=== PATIENT | female | born 1970 | race Caucasian/White ===

== ENCOUNTER → 2016-06-02 | Outpatient (CLI) | payer MEDICARE, OTHER, SELFPAY ==
--- NOTE | 2016-07-20 11:22 | BTN ---
SERVICE DATE: 07/20/2016 PATIENT #: [id number] #: NOT DICTATED IDENTIFICATION: Jessica is a 46-year-old female, who is here today for a followup visit. She brings with her, her 2-year-old grandson. CURRENT MEDICATIONS: Cymbalta 120 mg a day, Trileptal 600 mg b.i.d., hydroxyzine pamoate 25-50 mg at bedtime p.r.n. ALLERGIES: She has allergies to iodinated contrast media. CHIEF COMPLAINT: "Apparently, I am not doing too well." HISTORY OF PRESENT ILLNESS: Jessica states that she has had a lot of stressors lately. Money has been a big stressor, so she has had to cut back on her medications. She went several days without the Cymbalta and started doing much worse, so now she is down to taken 60 one day and 120 the next day. She is feeling some anxiety. She is also depressed. She is having more pain. She has gained weight, which is very distressing to her. Her ex- has not been paying the alimony on time and so, her bills are piling up. She was not able to make her bills that completely stressed her out. She states that with all of the stress on her, her pain has increased with her fibromyalgia. She is not sleeping well. She has not been using the hydroxyzine, either she has been really trying to conserve. Her medications, some day she feels hopeless. This has been to this extent for about the last 2 months. She denies suicidal or homicidal ideation. PHQ-9 score is eight. MIRZA-7 score is five. Past family, social history, and another major stressor is that her daughter is going to be going to school from September 06 to sometime in the first part of November, so that will leave the grand kids for Jessica to baby-sit and she has been stressing about that because it is a lot of work on her. REVIEW OF SYSTEMS: She has chronic pain. She has fibromyalgia. She also has some reactive airway disease with her respiratory. She has some gastric reflux as well. PHYSICAL EXAMINATION: VITAL SIGNS: Blood pressure is 134/96, heart rate 76, respirations 16, temperature is 97.8, her weight is 237.8 pounds. Height 68 inches. GENERAL APPEARANCE: She is well developed, well nourished, well groomed, appears her stated age. Muscle strength and tone appears equal bilaterally. Gait and station normal. Speech is clear, appropriate, coherent. I do not see any perseverating. Thought processes appear logical. Associations are intact. I do not see any psychosis. She denies hallucinations or suicidal or homicidal ideation. I do not see any delusions. Mood and affect are anxious and congruent. Insight and judgment appear fairly good. MENTAL STATUS EXAM: She is alert and oriented x3. Recent and remote memory appear intact. Attention span appears fairly normal. Language is good. Fund of knowledge appears adequate for developmental age. DIAGNOSES: Mark I: Bipolar I, F31.9; anxiety, F41.8. Mark II: No diagnosis. Mark III: She has fibromyalgia, reactive airway disease, acid reflux. Mark IV: Stressors, big stressor is money. Weight gain. When she has her grand children quite a bit, she gets completely stressed out and exhausted. Mark V: Current Global Assessment of Functioning score 67. TREATMENT PLAN: We talked about getting back on her medications as ordered and to see what she can do as far as I have being able to afford them on a consistent basis. She is going to talk to her daughter and see if the daughter can start paying her for baby-sitting as Jessica does not have really any other options. Boyfriend has helped her out somewhat, but she said she just cannot go to him. She said it causes too many problems, so she is going to try to get back on her medications on a regular basis. I also mentioned to her some phosphatidylserine 100 mg t.i.d. to see if that would help possibly with her stress resilience. She is going to give that a trial. I am going to see her back in a month. If she has any problems before that, she will give me a call. /[id number]
== END ==
LOC: MW.CHPM 09:16
PROVIDERS: ATTEND Anesthesiology
DX: Z51.81 Encounter for therapeutic drug level monitoring (principal); Z79.891 Long term (current) use of opiate analgesic
CPT/HCPCS: 95117; 99214; G0478; 80305

== ENCOUNTER → 2016-07-02 | Outpatient (CLI) | payer MEDICARE, OTHER, SELFPAY | LOC: MW.CHFP 08:00 | PROVIDERS: ATTEND Nurse Practitioner Family | DX: J30.1 Allergic rhinitis due to pollen (principal); J30.81 Allergic rhinitis due to animal (cat) (dog) hair and dander; J45.909 Unspecified asthma, uncomplicated | CPT/HCPCS: 95117 ==

== ENCOUNTER → 2016-07-20 | Outpatient (CLI) | payer MEDICARE, OTHER, SELFPAY | LOC: MW.CHFP 08:00 | PROVIDERS: ATTEND Nurse Practitioner Family | DX: J30.1 Allergic rhinitis due to pollen (principal); J30.81 Allergic rhinitis due to animal (cat) (dog) hair and dander; J30.89 Other allergic rhinitis; F31.9 Bipolar disorder, unspecified; F41.8 Other specified anxiety disorders | CPT/HCPCS: 95117; 99214 ==

== ENCOUNTER → 2016-08-12 | Outpatient (CLI) | payer MEDICARE, OTHER, SELFPAY ==
--- NOTE | 2016-08-12 13:32 | MR ---
EXAMINATION: MRI lumbar spine HISTORY: Arthropathy COMPARISON: 06/06/2015 TECHNIQUE: Multiplanar and multisequence images obtained of the lumbar spine without contrast. FINDINGS: There is grade 1 anterolisthesis of L4 on L5 otherwise the lumbar spinal alignment is norm al. There is a hemangioma within the L2 vertebral body. The distal spinal cord appears normal and th e conus terminates at L1. The SI joints are symmetric. The visualized retroperitoneal structures are normal. T12-L1: Unremarkable. L1-L2: Unremarkable. L2-L3: Tiny diffuse disc bulge without significant spinal canal stenosis or neural foraminal stenosi s. Mild facet and ligamentum flavum hypertrophy. L3-L4: Small diffuse disc bulge with facet and ligamentum flavum hypertrophy resulting in minimal sp inal canal stenosis. Mild bilateral neural foraminal stenosis. L4-L5: Moderate diffuse disc bulge with moderate to severe facet and ligamentum flavum hypertrophy r esulting in moderate spinal canal stenosis. Moderate to severe bilateral neural foraminal stenosis. L5-S1: Tiny diffuse disc bulge without significant spinal canal stenosis. Moderate left and mild rig ht neural foraminal stenosis. Moderate facet hypertrophy. IMPRESSION: 1. Multilevel degenerative disc disease demonstrated with individual details above.
== END ==
LOC: MW.MRI 08:49
PROVIDERS: ATTEND Anesthesiology
DX: M12.88 Other specific arthropathies, not elsewhere classified, other specified site (principal); M51.26 Other intervertebral disc displacement, lumbar region; M48.06 Spinal stenosis, lumbar region
CPT/HCPCS: 72148; 72148-26

== ENCOUNTER → 2016-08-13 | Outpatient (CLI) | payer MEDICARE, SELFPAY ==
--- NOTE | 2016-08-13 20:27 | CR ---
EXAM DATE: 08/13/16 PATIENT'S AGE: 46 Patient: CHARITO ZENDEJAS Facility: [place], [place] Site . Site : [id number] Study: XRay Spine Lumbar [id number] 10:26:33 AM Ordering Physician: Mireille Davidson Final Report: INDICATION: Lumbar stenosis TECHNIQUE: Five view lumbar spine including lateral flexion extension views. COMPARISON: none FINDINGS: There is facet degeneration at L4-5 and L5-S1. There is minimal anterior subluxation of L4 with respect L5. The degree of subluxation remains stable on the flexion extension views. There is narrowing of the L4-5 disc space. There is no evidence of a fracture or intrinsic bone lesion. The SI joints appear normal. The paraspinal soft tissues appear normal. IMPRESSION: Degenerative disc disease and facet arthropathy at L4-5 with accompanying mild anterior subluxation of L4 on L5. There is no evidence of instability on flexion or extension. Dictated by Dinesh Walsh MD @ Aug 13 2016 10:28AM (Electronic Signature) Report Signed by Proxy. DRAGAN
--- NOTE | 2016-08-19 13:39 | BTN ---
SERVICE DATE: 08/19/2016 PATIENT #: [id number] #: NOT DICTATED IDENTIFICATION: Jessica is a 46-year-old female, who is here today for a followup visit. CURRENT MEDICATIONS: Cymbalta 120 mg a day, Trileptal 600 mg b.i.d., hydroxyzine 25 mg to 50 mg at bedtime. She also recently started gabapentin 600 mg t.i.d. She also takes other medications for her chronic back pain; hydrocodone, diclofenac. CHIEF COMPLAINT: "I am not doing so well." HISTORY OF PRESENT ILLNESS: Jessica states that she has had more depression lately because she has had a lot more pain lately. She is hopefully going to be getting an epidural shot after she leaves our visit today. She states that if the pain is almost to where she cannot tolerate it. She said her pain is basically on a daily basis on a scale of 1 to 10 and 8. She is going to be meeting with surgeon from [facility] sometime this month and they are going to evaluate if they think surgery would help take care of a lot of the pain for her. She is hoping that will alleviate some of this. PHQ-9 score is 10, MIRZA-7 score is 2. Sleep is often disrupted because of the pain. She also has a lot of stressors with money. Ex- supposed to be sending her 800 a month and she said often times it is late or she does not get it all and that is a huge stressor for her with her bills. REVIEW OF SYSTEMS: Jessica has chronic back pain. She has had this for quite a while. In her lower back, there is a herniated disc or something to that effect. She also has reactive airway disease and takes medications for that. PHYSICAL EXAMINATION: VITAL SIGNS: Weight is 239.6 pounds, height 68 inches. Temp is 98.5, heart rate is 75, respirations 16, blood pressure 137/92. GENERAL APPEARANCE: Jessica is very well groomed, very pleasant lady. She appears her stated age. Her gait and station seem a little off and I think that is just because of the pain she has in her lower back. There is a slight lump. Her speech is clear and appropriate, coherent. Thought processes are logical. Associations appear intact. I do not see any delusions. She denies hallucinations or suicidal or homicidal ideation. Mood and affect, her mood is down and she said it is down for money reasons, but it is also down because of the chronic pain. Insight and judgment appear to be intact. MENTAL STATUS EXAM: She is alert and oriented x3. Recent and remote memory appear intact. Attention span appears within normal limits. Language is good. Fund of knowledge appears adequate for developmental age. DIAGNOSES: [place] I: Bipolar disorder, F31.9; anxiety, F41.8. [place] II: No diagnosis. [place] III: Chronic pain, reactive airway disease. [place] IV: Stressors, her chronic pain and money. [place] V: Current Global Assessment of Functioning score 68. TREATMENT PLAN: We discussed a number of options and I am going to add a little bit of Wellbutrin to the Cymbalta, I am going to give her 150 mg a day. She has taken Wellbutrin before and does not really remember how it affected her, but she know she took it for a long time. So, she states that she does not think that there was anything bad with that. I am going to add that. I will follow up with her in about 6 weeks. At that time, we should have some answers if they are going to do surgery, if the epidural has been successful. /[id number]
== END ==
LOC: MW.CHPM 08:05
PROVIDERS: ATTEND Anesthesiology
DX: Z51.81 Encounter for therapeutic drug level monitoring (principal); Z79.891 Long term (current) use of opiate analgesic; M48.06 Spinal stenosis, lumbar region; M51.36 Other intervertebral disc degeneration, lumbar region; M54.5 Low back pain; G89.29 Other chronic pain; M54.16 Radiculopathy, lumbar region; M43.16 Spondylolisthesis, lumbar region; M79.1 Myalgia
CPT/HCPCS: 20552; 72110; 72110-26; 80305; 99214

== ENCOUNTER 2016-08-19 12:04 | Day surgery (SDC) | payer MEDICARE, OTHER ==
[~2016-08-19 12:04] MED LIST: Betamethasone Acetate/Betamethasone Sod Phosphate 30 MG/5 ML MDV ONE; Lidocaine 2% 5 ML SDV ONE; Ropivacaine 0.5% 5 MG/ML 30 ML SDV ONE
--- NOTE | 2016-08-19 21:24 | OR ---
SURGEON: Lety Kendrick D.O. DATE OF PROCEDURE: 08/19/2016 OR STAFF PRESENT: 1. Kayden So RN. 2. Carey Kumar RN. FORGING ENGINEER: RT Elisa. WOUND CLASSIFICATION: I. PREOPERATIVE DIAGNOSES: 1. Lumbar degenerative disk disease. 2. Lumbar spondylosis. 3. Lumbar spondylolisthesis. POSTOPERATIVE DIAGNOSES: 1. Lumbar degenerative disk disease. 2. Lumbar spondylosis. 3. Lumbar spondylolisthesis. PROCEDURE PERFORMED: 1. Caudal epidural steroid injection. 2. Fluoroscopic guidance for needle placement. 3. Local with oral Valium for sedation. SCREENING QUESTIONS: The patient answered "no" to all of the following questions: 1. Are you allergic to latex? 2. Do you have a bleeding disorder? 3. Do you have any current local or systemic infections? 4. Are you taking any anti-inflammatories or blood thinners? 5. Do you have any joint replacements, heart valve replacements, or a pacemaker? DESCRIPTION OF PROCEDURE: The patient had the procedure thoroughly explained including all possible risks, benefits and alternatives. Consent was signed in my clinic indicating understanding and willingness to proceed. The patient presented to [facility] and was escorted to the dressing room to disrobe and change into a hospital gown. Preoperative vital signs were taken and stable. The patient reported that Valium was taken prior to the procedure. The patient was brought back to the procedure room and placed in the prone position on the procedure room table. A pillow was placed under the hips in order to flatten the lumbar lordosis. The back was prepped with ChloraPrep and sterilely draped. All personnel in the operating room were dressed in appropriate attire including surgical scrubs, head and shoe covers. This was to ensure sterility while in the treatment room. During the time fluoroscopy was in use, all personnel in the operating room wore lead leal with thyroid collars. Sterile technique was used throughout the procedure. The patient was awake and conversant throughout the procedure. There was no evidence of infection at the site of needle insertion. Skeletal landmarks were identified under fluoroscopy for the lumbar epidural. Skin was anesthetized with 2% lidocaine with a sterile 27-gauge 1.5 inch needle. Then a 20-gauge Tuohy epidural needle was placed in the epidural space with loss of resistance technique under fluoroscopic guidance. No heme, cerebrospinal fluid, or paresthesias were noted. Isovue-200 contrast dye was injected in 0.2 cubic centimeter increments and seen to outline the epidural space in both AP and lateral views. There was no intravascular flow pattern observed under live fluoroscopy. Then 12 milligrams of Celestone was slowly injected after negative aspiration. The patient tolerated the procedure well. Vital signs were stable during and after the procedure. The staff escorted the patient to the recovery area and the patient was released in stable condition after a brief stay in the recovery room monitored by the nurse. The patient was given both oral and written discharge and follow up instructions with recommendation to follow up given for 2-3 weeks. The patient voiced understanding including understanding of those signs and symptoms that would require emergency care. The patient knows how to contact the office if there are any additional problems or questions in the meantime. PREOPERATIVE PAIN: 7/10. POSTOPERATIVE PAIN: 2/10. FOLLOWUP: Followup in the pain clinic in 3 weeks. NUZHAT / INDIO /[id number] DRAGAN
== END 2016-08-19 13:34 | disposition home or self-care (01) ==
LOC: MW.SDS 12:04
PROVIDERS: ATTEND Anesthesiology
DX: M51.16 Intervertebral disc disorders with radiculopathy, lumbar region (principal); M43.16 Spondylolisthesis, lumbar region; M47.896 Other spondylosis, lumbar region; M51.34 Other intervertebral disc degeneration, thoracic region; M41.30 Thoracogenic scoliosis, site unspecified; M48.06 Spinal stenosis, lumbar region; M12.88 Other specific arthropathies, not elsewhere classified, other specified site; M51.9 Unspecified thoracic, thoracolumbar and lumbosacral intervertebral disc disorder; M46.96 Unspecified inflammatory spondylopathy, lumbar region; G89.29 Other chronic pain; J45.909 Unspecified asthma, uncomplicated; F31.30 Bipolar disorder, current episode depressed, mild or moderate severity, unspecified; K59.09 Other constipation; M79.1 Myalgia; G11.8 Other hereditary ataxias; E78.00 Pure hypercholesterolemia, unspecified; G62.9 Polyneuropathy, unspecified; I10 Essential (primary) hypertension; E11.9 Type 2 diabetes mellitus without complications; E66.9 Obesity, unspecified; Z79.891 Long term (current) use of opiate analgesic; Z79.899 Other long term (current) drug therapy; Z91.041 Radiographic dye allergy status; Z90.49 Acquired absence of other specified parts of digestive tract; Z90.710 Acquired absence of both cervix and uterus; Z98.84 Bariatric surgery status; J30.1 Allergic rhinitis due to pollen; J30.81 Allergic rhinitis due to animal (cat) (dog) hair and dander; J30.89 Other allergic rhinitis; M54.5 Low back pain; G89.4 Chronic pain syndrome; M54.16 Radiculopathy, lumbar region
CPT/HCPCS: 62323; 95117; 99214; G0463; J0702; J2795

== ENCOUNTER 2016-09-30 10:31 | Day surgery (SDC) | payer MEDICARE, SELFPAY ==
[~2016-09-30 10:31] MED LIST changes: +Iopamidol 408 MG/ML 50 ML SDV ONE
--- NOTE | 2016-09-30 18:33 | OR ---
SURGEON: Lety Kendrick D.O. DATE OF PROCEDURE: 09/30/2016 OR STAFF PRESENT: 1. Viktoriya Francois RN. 2. Jimmy Pickett RN. SLOT FLOOR ATTENDANT: RT Samm. WOUND CLASSIFICATION: I. PREOPERATIVE DIAGNOSES: 1. Lumbar radiculopathy. 2. Lumbar degenerative disk disease. 3. Lumbar spondylolisthesis POSTOPERATIVE DIAGNOSES: 1. Lumbar radiculopathy. 2. Lumbar degenerative disk disease. 3. Lumbar spondylolisthesis. PROCEDURE PERFORMED: 1. Interlaminar epidural steroid injection at L4-5. 2. Fluoroscopic guidance for needle placement. 3. Local with oral Valium for sedation. SCREENING QUESTIONS: The patient answered "no" to all of the following questions: 1. Are you allergic to latex? 2. Do you have a bleeding disorder? 3. Do you have any current local or systemic infections? 4. Are you taking any anti-inflammatories or blood thinners? 5. Do you have any joint replacements, heart valve replacements, or a pacemaker? DESCRIPTION OF PROCEDURE: The patient had the procedure thoroughly explained including all possible risks, benefits and alternatives. Consent was signed in my clinic indicating understanding and willingness to proceed. The patient presented to [facility] and was escorted to the dressing room to disrobe and change into a hospital gown. Preoperative vital signs were taken and stable. The patient reported that Valium was taken prior to the procedure. The patient was brought back to the procedure room and placed in the prone position on the procedure room table. A pillow was placed under the hips in order to flatten the lumbar lordosis. The back was prepped with ChloraPrep and sterilely draped. All personnel in the operating room were dressed in appropriate attire including surgical scrubs, head and shoe covers. This was to ensure sterility while in the treatment room. During the time fluoroscopy was in use, all personnel in the operating room wore lead leal with thyroid collars. Sterile technique was used throughout the procedure. The patient was awake and conversant throughout the procedure. There was no evidence of infection at the site of needle insertion. Skeletal landmarks were identified under fluoroscopy for the lumbar epidural at the L4-5 interspace. Skin was anesthetized with 2% lidocaine with a sterile 27-gauge 1.5 inch needle. Then a 20-gauge Tuohy epidural needle was placed in the epidural space with loss of resistance technique under fluoroscopic guidance. No heme, cerebrospinal fluid, or paresthesias were noted. Then 3 mL test dose of 1.5% lidocaine with 1: 200,000 epinephrine was injected and negative. Then 12 milligrams of Celestone was slowly injected after negative aspiration. Then 3 mL of 0.5% ropivacaine was slowly injected. The patient tolerated the procedure well. Vital signs were stable during and after the procedure. The staff escorted the patient to the recovery area and the patient was released in stable condition after a brief stay in the recovery room monitored by the nurse. The patient was given both oral and written discharge and follow up instructions with recommendation to follow up given for 3 weeks. The patient voiced understanding including understanding of those signs and symptoms that would require emergency care. The patient knows how to contact the office if there are any additional problems or questions in the meantime. PREOPERATIVE PAIN: 4+/10. POSTOPERATIVE PAIN: 0/10. PLAN: Followup in the Pain Clinic in 3 weeks. NUZHAT / INDIO /[id number] MTDPromise
== END 2016-09-30 12:53 | disposition home or self-care (01) ==
LOC: MW.SDS 10:31
PROVIDERS: ATTEND Anesthesiology
DX: G89.4 Chronic pain syndrome (principal); M51.16 Intervertebral disc disorders with radiculopathy, lumbar region; M43.16 Spondylolisthesis, lumbar region; J45.909 Unspecified asthma, uncomplicated; F31.30 Bipolar disorder, current episode depressed, mild or moderate severity, unspecified; K59.09 Other constipation; I10 Essential (primary) hypertension; E11.9 Type 2 diabetes mellitus without complications; M48.06 Spinal stenosis, lumbar region; E66.9 Obesity, unspecified; M51.34 Other intervertebral disc degeneration, thoracic region; Z91.041 Radiographic dye allergy status; Z79.899 Other long term (current) drug therapy; Z98.84 Bariatric surgery status; Z90.49 Acquired absence of other specified parts of digestive tract; Z90.710 Acquired absence of both cervix and uterus; Z90.89 Acquired absence of other organs; Z96.698 Presence of other orthopedic joint implants; Z98.890 Other specified postprocedural states; Z68.35 Body mass index [BMI] 35.0-35.9, adult; J30.1 Allergic rhinitis due to pollen; J30.81 Allergic rhinitis due to animal (cat) (dog) hair and dander; J30.89 Other allergic rhinitis; M18.12 Unilateral primary osteoarthritis of first carpometacarpal joint, left hand; S63.102A Unspecified subluxation of left thumb, initial encounter
CPT/HCPCS: 20605; 62323; 95117; 99203; J0702; J2795; J3301; Q9966

== ENCOUNTER 2016-10-07 15:14 | Emergency (ER) | payer MEDICARE, SELFPAY ==
[2016-10-07] MEDS ORDERED: Sodium Chloride 0.9% 1,000 ML IV ONE (16:10)
--- NOTE | 2016-10-07 16:21 | EDM.PDOC ---
ED HPI GENERAL MEDICAL PROBLEM - General Chief Complaint: General Stated Complaint: DIZZINESS Time Seen by Provider: 10/07/16 16:12 Source of Information: Reports: Patient History Limitations: Reports: No Limitations - History of Present Illness INITIAL COMMENTS - FREE TEXT/NARRATIVE: History of present illness: [46-year-old female presenting with acute symptoms of weakness, dizziness, and nausea status post protracted time in 100+ degrees heat direct sunlight without shade. [place] park [place] 2 [place] and she got overheated and became nauseous and dizzy and was unable to feel hydrated and so she came in for evaluation] Review of systems: As per history of present illness and below otherwise all systems reviewed and negative. Past medical history: As per history of present illness and as reviewed below otherwise noncontributory. Surgical history: As per history of present illness and as reviewed below otherwise noncontributory. Social history: No reported history of drug or alcohol abuse. Family history: As per history of present illness and as reviewed below otherwise noncontributory. Physical exam: HEENT: Atraumatic, normocephalic, pupils reactive, negative for conjunctival pallor or scleral icterus, mucous membranes moist, throat clear, neck supple, nontender, trachea midline. Lungs: Clear to auscultation, breath sounds equal bilaterally, chest nontender. Heart: S1S2, regular, negative for clicks, rubs, or JVD. Abdomen: Soft, nondistended, nontender. Negative for masses or hepatosplenomegaly. Negative for costovertebral tenderness. Pelvis: Stable nontender. Genitourinary: Deferred. Rectal: Deferred. Extremities: Atraumatic, negative for cords or calf pain. Neurovascular unremarkable. Neuro: Awake, alert, oriented. Cranial nerves II through XII unremarkable. Cerebellum unremarkable. Motor and sensory unremarkable throughout. Exam nonfocal. Assessment is benign save the subjective complaint as noted in the history of present illness. Patient is on numerous medications that are not beneficial for her to be in the sun for protracted present time without risking some level of heat exhaustion this was discussed with patient and she verbalized understanding. Diagnostics: [CBC, CMP] Therapeutics: [IV fluid, Zofran] Impression: [heat Exhaustion] Plan: [Hydration, stay out of the sun] Definitive disposition and diagnosis as appropriate pending reevaluation and review of above. - Related Data Allergies Allergy/AdvReac Type Severity Reaction Status Date / Time IV Contrast Allergy Anaphylactic Uncoded 10/07/16 16:05 Shock Home Meds: Home Meds Ondansetron HCl [Zofran] 4 mg PO Q6HR #20 tablet 10/07/16 [Rx] ED ROS GENERAL - Review of Systems Review Of Systems: See Below (See history of present illness) ED EXAM, GENERAL - Physical Exam Exam: See Below (See history of present illness) Course - Vital Signs Last Recorded V/S: Last Vital Signs Temp 36.2 C 10/07/16 16:05 Pulse 106 H 10/07/16 16:05 Resp 18 10/07/16 16:05 BP 152/87 H 10/07/16 16:05 Pulse Ox 97 10/07/16 16:05 - Orders/Labs/Meds Labs: Laboratory Tests 10/07/16 10/07/16 Range/Units 16:44 16:44 WBC 11.62 H (4.0-11.0) K/uL RBC 4.71 (4.30-5.90) M/uL Hgb 12.3 (12.0-16.0) g/dL Hct 39.1 (36.0-46.0) % MCV 83.0 (80.0-98.0) fL MCH 26.1 L (27.0-32.0) pg MCHC 31.5 (31.0-37.0) g/dL RDW Std Deviation 44.0 (28.0-62.0) fl RDW Coeff of Alberto 15 (11.0-15.0) % Plt Count 281 (150-400) K/uL MPV 9.60 (7.40-12.00) fL Neut % (Auto) 67.0 (48.0-80.0) % Lymph % (Auto) 19.0 (16.0-40.0) % Falls % (Auto) 11.5 (0.0-15.0) % Eos % (Auto) 2.2 (0.0-7.0) % Baso % (Auto) 0.3 (0.0-1.5) % Neut # (Auto) 7.8 H (1.4-5.7) K/uL Lymph # (Auto) 2.2 (0.6-2.4) K/uL Falls # (Auto) 1.3 H (0.0-0.8) K/uL Eos # (Auto) 0.3 (0.0-0.7) K/uL Baso # (Auto) 0.0 (0.0-0.1) K/uL Nucleated RBC % 0.0 /100WBC Nucleated RBCs # 0 K/uL Sodium 138 (136-146) mmol/L Potassium 4.3 (3.5-5.1) mmol/L Chloride 104 (98-110) mmol/L Carbon Dioxide 28 (21-31) mmol/L BUN 14 (6.0-23.0) mg/dL Creatinine 0.8 (0.6-1.5) mg/dL Est Cr Clr Drug Dosing 87.70 mL/min Estimated GFR (MDRD) > 60.0 ml/min Glucose 119 H (60-110) mg/dL Calcium 8.6 L (8.8-10.8) mg/dL Total Bilirubin 0.1 (0.1-1.5) mg/dL AST 19 (5-40) IU/L ALT 19 (8-54) IU/L Alkaline Phosphatase 96 (40-150) Total Protein 7.5 (6.0-8.0) g/dL Albumin 4.3 (3.5-5.0) g/dL Globulin 3.2 (2.0-3.5) g/dL Albumin/Globulin Ratio 1.3 (1.3-2.8) Meds: Medications Discontinued Medications Generic Name Dose Route Start Last Admin Trade Name Freq PRN Reason Stop Dose Admin Sodium Chloride 1,000 mls @ 999 mls/hr 10/07/16 16:10 10/07/16 16:48 Normal Saline IV 10/07/16 17:10 999 mls/hr STAT ONE Administration Ondansetron HCl 8 mg 10/07/16 17:21 Zofran IVPUSH 10/07/16 17:22 ONETIME ONE Departure - Departure Time of Disposition: 17:24 Disposition: Home, Self-Care 01 Condition: Good Clinical Impression: Dehydration, Heat exhaustion - Discharge Information Prescriptions: Ondansetron HCl [Zofran] 4 mg PO Q6HR #20 tablet Forms: ED Department Discharge Additional Instructions: The following information is given to patients seen in the emergency department who are being discharged to home. This information is to outline your options for follow-up care. We provide all patients seen in our emergency department with a follow-up referral. The need for follow-up, as well as the timing and circumstances, are variable depending upon the specifics of your emergency department visit. If you don't have a primary care physician on staff, we will provide you with a referral. We always advise you to contact your personal physician following an emergency department visit to inform them of the circumstance of the visit and for follow-up with them and/or the need for any referrals to a consulting specialist. The emergency department will also refer you to a specialist when appropriate. This referral assures that you have the opportunity for follow-up care with a specialist. All of these measure are taken in an effort to provide you with optimal care, which includes your follow-up. Under all circumstances we always encourage you to contact your private physician who remains a resource for coordinating your care. When calling for follow-up care, please make the office aware that this follow-up is from your recent emergency room visit. If for any reason you are refused follow-up, please contact the [facility] Emergency Department at and asked to speak to the emergency department charge nurse. you are on several medications that it is beneficial for you to stay out of the sun and or at least obtaining shave and stay hydrated while taking them Take medication as directed Follow-up with PCP 1-2 days Return to ED as needed as discussed
[2016-10-07 17:20] LABS: CHLORIDE,CL 104 mmol/L (98-110); SODIUM,NA 138 mmol/L (136-146)
[2016-10-07] MEDS ORDERED: Ondansetron 4 MG/2 ML SDV IVPUSH ONE (17:21)
[2016-10-07 18:01] VITALS: BP 139/87
== END 2016-10-07 17:51 | disposition home or self-care (01) ==
LOC: MW.ED 15:14
DX: T67.5XXA Heat exhaustion, unspecified, initial encounter (principal); E86.0 Dehydration; X30.XXXA Exposure to excessive natural heat, initial encounter; Y93.89 Activity, other specified; Z91.041 Radiographic dye allergy status; J30.89 Other allergic rhinitis; J30.81 Allergic rhinitis due to animal (cat) (dog) hair and dander; J30.1 Allergic rhinitis due to pollen
CPT/HCPCS: 80053; 85025; 95117; 96361; 96374; 99284; J2405; J7040; 99282

== ENCOUNTER 2017-07-25 07:24 | Day surgery (SDC) | payer MEDICARE, OTHER ==
[~2017-07-25 07:24] MED LIST changes: -Betamethasone Acetate/Betamethasone Sod Phosphate 30 MG/5 ML MDV ONE; -Iopamidol 408 MG/ML 50 ML SDV ONE; +Lactated Ringers 1,000 ML IV SCH; -Lidocaine 2% 5 ML SDV ONE; -Ropivacaine 0.5% 5 MG/ML 30 ML SDV ONE
[2017-07-25] MEDS ORDERED: Acetaminophen 1,000 MG in Premix Bag 1 BAG IV ONE (07:58)
--- NOTE | 2017-07-25 07:58 | PCM.PREANE ---
Preanesthetic Assessment - Anesthesia/Transfusion/Family Hx Anesthesia History: Prior Anesthesia Reaction Other Type of Anesthesia Reaction Comment: no N&V recently Family History of Anesthesia Reaction: No Transfusion History: No Prior Transfusion(s) - Review of Systems General: No Symptoms Pulmonary: No Symptoms Cardiovascular: No Symptoms Gastrointestinal: No Symptoms Neurological: No Symptoms Other: Reports: None - Physical Assessment NPO Status Date: 07/24/17 Height: 1.73 m Weight: 112.945 kg ASA Class: 2 Airway Class: Mallampati = 1 Dentition: Reports: Normal Dentition ROM/Head Extension: Full Lungs: Clear to Auscultation, Normal Respiratory Effort Cardiovascular: Regular Rate, Regular Rhythm - Allergies Allergies/Adverse Reactions: Allergies Allergy/AdvReac Type Severity Reaction Status Date / Time IV Contrast Allergy Anaphylactic Uncoded 07/21/17 12:54 Shock - Anesthesia Plan Pre-Op Medication Ordered: Other (iv acetamenophen for migraine) - Acknowledgements Anesthesia Type Planned: MAC Pt an Appropriate Candidate for the Planned Anesthesia: Yes Alternatives and Risks of Anesthesia Discussed w Pt/Guardian: Yes Pt/Guardian Understands and Agrees with Anesthesia Plan: Yes PreAnesthesia Questionnaire HEENT History: Reports: Allergic Rhinitis, Other (See Below) Other HEENT History: wears glasses/contacts Cardiovascular History: Reports: Hypertension Respiratory History: Reports: Asthma Gastrointestinal History: Reports: Chronic Constipation Musculoskeletal History: Reports: Arthritis, Fracture Other Musculoskeletal History: hx of fx clavicle Neurological History: Reports: Migraines Other Neuro History: hx of migranes before TMJ surgery Psychiatric History: Reports: Bipolar Endocrine/Metabolic History: Reports: Obesity/BMI 30+ Hematologic History: Reports: Anemia - Past Surgical History Head Surgeries/Procedures: Reports: None HEENT Surgical History: Reports: Naso-Sinus Surgery, Oral Surgery, Tonsillectomy Other HEENT Surgeries/Procedures: hx of right TMJ Arthroplasty GI Surgical History: Reports: Bariatric Procedure, Cholecystectomy, Colonoscopy Female Surgical History: Reports: Hysterectomy Neurological Surgical History: Reports: Lumbar Spine, Spinal Fusion Other Neurological Surgeries/Procedures: fusion at L5-L5 Musculoskeletal Surgical History: Reports: Knee Replacement, Other (See Below) Other Musculoskeletal Surgeries/Procedures:: hx of tendon transfur right foot, plantar fasciectomy, bilateral bunionectomy, Left TKA - SUBSTANCE USE Smoking Status *Q: Never Smoker Recreational Drug Use History: No - HOME MEDS Home Medications: Home Meds Acetaminophen [Tylenol] 325 mg PO ASDIRECTED PRN 07/21/17 [History] Albuterol [Ventolin HFA] 1 - 2 puff INH Q4H PRN 07/21/17 [History] Baclofen 10 mg PO BID 07/21/17 [History] Calcium Carbonate [Tums] 500 mg PO ASDIRECTED PRN 07/21/17 [History] Cetirizine [ZyrTEC] 10 mg PO DAILY 07/21/17 [History] Cyanocobalamin/FA/Pyridoxine [Folbic Tablet] 1 tab PO DAILY 07/21/17 [History] DULoxetine HCl [Cymbalta] 120 mg PO DAILY 07/21/17 [History] Diclofenac Sodium 4 gm TOP QID 07/21/17 [History] EPINEPHrine [Epipen 2-Pavel] 1 dose IM ASDIRECTED PRN 07/21/17 [History] Flunisolide [Nasalide Nasal Gary] 2 spray NASBOTH BID 07/21/17 [History] Gebauers [place] And Stretch 1 dose TOP ASDIRECTED PRN 07/21/17 [History] Ipratropium [place] 1 spray NASBOTH ASDIRECTED PRN 07/21/17 [History] Ketamine HCl [Ketamine Hydrochloride] 1 dose TOP ASDIRECTED PRN 07/21/17 [ History] Mometasone Furoate [Asmanex] 1 puff INH BID 07/21/17 [History] Montelukast Sodium 10 mg PO BEDTIME 07/21/17 [History] OXcarbazepine [Oxcarbazepine] 600 mg PO BID 07/21/17 [History] Olopatadine [Pataday 0.2% Ophth Soln] 1 drop EYEBOTH ASDIRECTED PRN 07/21/17 [ History] - CURRENT (IN HOUSE) MEDS Current Meds: Current Medications Lactated Ringer's (Ringers, Lactated) 1,000 mls @ 125 mls/hr IV ASDIRECTED PATIENCE
[2017-07-25] MEDS ORDERED: Propofol 200 MG/20 ML SDV ONE ×5 (08:24→10:59)
[2017-07-25] MEDS ORDERED: fentaNYL 100 MCG/2 ML SDV ONE (08:25)
[2017-07-25] MEDS ORDERED: Midazolam 1 MG/ML 2 ML SDV ONE (08:25)
--- NOTE | 2017-07-25 11:21 | PCM.OPNOTE ---
- General Post-Op/Procedure Note Date of Surgery/Procedure: 07/25/17 Operative Procedure(s): Esophagogastroduodenoscopy with biopsy. Colonoscopy. Pre Op Diagnosis: Anemia. Abdominal pain. Post-Op Diagnosis: Mild to moderate gastritis. Patent anastomosis with no anastomotic stricture. No evidence of colonic neoplasia Anesthesia Technique: MAC (ASA III) Primary Surgeon: Pete Hyde Hosiery Knitter: Dmitry Carbajal Condition: Good Free Text/Narrative:: Dictation [id number] CPT CODE 87701/[id number]
--- NOTE | 2017-07-25 11:28 | PCM48HPAN ---
Post Anesthesia Note - EVALUATION WITHIN 48HRS OF ANESTHETIC Vital Signs in Normal Range: Yes Patient Participated in Evaluation: Yes Respiratory Function Stable: Yes Airway Patent: Yes Cardiovascular Function Stable: Yes Hydration Status Stable: Yes Pain Control Satisfactory: Yes Nausea and Vomiting Control Satisfactory: Yes Mental Status Recovered: Yes Resp Rate: 10
--- NOTE | 2017-07-25 11:28 | PCM.POSTAN ---
POST ANESTHESIA ASSESSMENT - MENTAL STATUS Mental Status: Alert, Oriented - RESPIRATORY Respiratory Status: Respiratory Rate WNL, Airway Patent, O2 Saturation Stable - CARDIOVASCULAR CV Status: Pulse Rate WNL, Blood Pressure Stable - GASTROINTESTINAL GI Status: No Symptoms - POST OP HYDRATION Hydration Status: Adequate & Stable
--- NOTE | 2017-07-25 11:50 | OR ---
SURGEON: Pete Hyde M.D. DATE OF PROCEDURE: 07/25/2017 OPERATION PERFORMED: Colonoscopy. FINISH SAW OPERATOR: Dr. Carbajal PGY-2. ANESTHESIA: MAC. [employer] CLASSIFICATION CLASSIFICATION: III. PREOPERATIVE DIAGNOSES: 1. New onset anemia. 2. Abdominal pain. POSTOPERATIVE DIAGNOSIS: No evidence of colonic neoplasia. DESCRIPTION OF PROCEDURE: With the patient having completed esophagogastroduodenoscopy, she was maintained in the left lateral decubitus position. The colonoscope was inserted into the rectum and advanced with great difficulty to the proximal ascending colon briefly visualizing the cecum in the distance. Despite multiple maneuvers, I was not able to retroflex the colonoscope. The colonoscope was then slowly withdrawn. The prep was fair. The ascending colon, hepatic flexure, transverse colon, splenic flexure, descending colon, sigmoid colon, and rectum showed no tumors, polyps, diverticula, or angiodysplastic changes. There was no evidence of inflammatory bowel disease. Once the colonoscope was withdrawn to the rectum, it was retroflexed visualizing the anal orifice from above. Again, no tumors or polyps were seen and there were no acute hemorrhoidal changes. The colonoscope was then straightened, the rectum aspirated, and the colonoscope removed. The patient tolerated the procedure well and was taken to recovery room in stable condition. MEERA / INDIO /[id number]
--- NOTE | 2017-07-25 12:00 | OR ---
SURGEON: Pete Hyde M.D. DATE OF PROCEDURE: 07/25/2017 OPERATION PERFORMED: Esophagogastroduodenoscopy with biopsy. TRAFFIC OFFICER: Dr. Carbajal, PGY-2. ANESTHESIA: MAC. [employer] CLASSIFICATION: III. PREOPERATIVE DIAGNOSES: 1. New onset anemia. 2. Personal history of gastric bypass. 3. Abdominal pain. POSTOPERATIVE DIAGNOSIS: Mild gastritis. DESCRIPTION OF PROCEDURE: The patient was taken to the endoscopy room, positioned on the endoscopy table in the left lateral decubitus position. Time-out was called for appropriate identification of the patient and procedure. Monitored anesthesia care was provided. The bite block was placed between the patient's teeth. The gastroscope was inserted through the bite block and advanced without difficulty through the esophagus into the stomach. The anastomosis was clearly visualized and cannulated. There was no obstruction or narrowing at the site of anastomosis. The jejunum did not show any acute inflammatory changes or ulcerations. The anastomosis again is widely patent and shows mild inflammatory changes along with the proximal stomach showing the same. Biopsies of the anastomosis and the proximal stomach were taken and sent separately. The GE junction was well defined and shows no acute inflammatory changes. The esophagus demonstrates good contractility. No mid or proximal lesions were identified. The vocal cords were visualized as the scope was withdrawn and noted to move symmetrically. The gastroscope was then removed with the patient having tolerated this portion of the procedure well. Following colonoscopy, she was taken to recovery room in stable condition. MEERA BORJAS /[id number]
[2017-07-25 12:43] VITALS: BP 133/72
== END 2017-07-25 12:20 | disposition home or self-care (01) ==
LOC: MW.SDS 07:24
PROVIDERS: ATTEND Surgery
DX: K29.50 Unspecified chronic gastritis without bleeding (principal); D64.9 Anemia, unspecified; I10 Essential (primary) hypertension; J30.81 Allergic rhinitis due to animal (cat) (dog) hair and dander; J30.1 Allergic rhinitis due to pollen; M18.12 Unilateral primary osteoarthritis of first carpometacarpal joint, left hand; F41.9 Anxiety disorder, unspecified; F31.30 Bipolar disorder, current episode depressed, mild or moderate severity, unspecified; E66.9 Obesity, unspecified; Z68.37 Body mass index [BMI] 37.0-37.9, adult; Z79.51 Long term (current) use of inhaled steroids; Z79.899 Other long term (current) drug therapy; Z91.041 Radiographic dye allergy status; Z90.49 Acquired absence of other specified parts of digestive tract; Z90.89 Acquired absence of other organs; Z96.652 Presence of left artificial knee joint; Z98.1 Arthrodesis status; Z98.84 Bariatric surgery status; Z98.890 Other specified postprocedural states
CPT/HCPCS: 00813; 88305; 88312; J2250; J2704; J3010; J7120

== ENCOUNTER 2017-11-28 10:11 | Day surgery (SDC) | payer MEDICARE ==
[~2017-11-28 10:11] MED LIST changes: +Acetaminophen/HYDROcodone 325-5 MG Tab PO PRN; +ceFAZolin 2 GM in Premix Bag 1 BAG IV SCH
[2017-11-28] MEDS ORDERED: Propofol 200 MG/20 ML SDV ONE (10:20)
[2017-11-28] MEDS ORDERED: Midazolam 1 MG/ML 2 ML SDV ONE (10:21)
[2017-11-28] MEDS ORDERED: fentaNYL 250 MCG/5 ML SDV ONE (10:21)
[2017-11-28] MEDS ORDERED: Ondansetron 4 MG/2 ML SDV ONE (10:22)
[2017-11-28] MEDS ORDERED: Dexamethasone 4 MG/ML 5 ML MDV ONE (10:22)
[2017-11-28] MEDS ORDERED: Ketorolac 30 MG/ML SDV ONE (10:22)
--- NOTE | 2017-11-28 11:28 | PCM.PREANE ---
Preanesthetic Assessment - Anesthesia/Transfusion/Family Hx Anesthesia History: Prior Anesthesia Without Reaction Other Type of Anesthesia Reaction Comment: no N&V recently Family History of Anesthesia Reaction: No Transfusion History: No Prior Transfusion(s) - Review of Systems General: No Symptoms Pulmonary: No Symptoms Cardiovascular: No Symptoms Gastrointestinal: No Symptoms Neurological: No Symptoms Other: Reports: None - Physical Assessment NPO Status Date: 11/27/17 NPO Status Time: 20:00 O2 Sat by Pulse Oximetry: 97 Respiratory Rate: 20 Vital Signs: Last Vital Signs Temp 36.6 C 11/28/17 10:30 Pulse 74 11/28/17 10:30 Resp 20 11/28/17 10:30 BP 143/86 H 11/28/17 10:30 Pulse Ox 97 11/28/17 10:30 Height: 1.73 m Weight: 105.687 kg ASA Class: 3 Mental Status: Alert & Oriented x3 Airway Class: Mallampati = 2 Dentition: Reports: Normal Dentition ROM/Head Extension: Full Lungs: Clear to Auscultation, Normal Respiratory Effort Cardiovascular: Regular Rate, Regular Rhythm - Allergies Allergies/Adverse Reactions: Allergies Allergy/AdvReac Type Severity Reaction Status Date / Time IV Contrast Allergy Anaphylactic Uncoded 11/23/17 13:04 Shock - Anesthesia Plan Pre-Op Medication Ordered: None (PMH: chronic pain(neck back headache), allergic rhinitis, asthma(inactive recently), anxiety, bipolar,IBS. (DM2 and SUDEEP have both resolved after weight loss)) - Acknowledgements Anesthesia Type Planned: General Anesthesia Pt an Appropriate Candidate for the Planned Anesthesia: Yes Alternatives and Risks of Anesthesia Discussed w Pt/Guardian: Yes Pt/Guardian Understands and Agrees with Anesthesia Plan: Yes PreAnesthesia Questionnaire HEENT History: Reports: Allergic Rhinitis, Other (See Below) Other HEENT History: wears glasses/contacts Cardiovascular History: Reports: Hypertension Respiratory History: Reports: Asthma Other Respiratory History: uses rescue inhaler about 2x per month Gastrointestinal History: Musculoskeletal History: Reports: Back Pain, Chronic Other Musculoskeletal History: hx of fx clavicle Neurological History: Reports: Migraines Other Neuro History: hx of migranes before TMJ surgery Psychiatric History: Reports: Bipolar Endocrine/Metabolic History: Reports: Obesity/BMI 30+ Hematologic History: Reports: Anemia Immunologic History: Reports: None Oncologic (Cancer) History: Reports: None - Past Surgical History Head Surgeries/Procedures: Reports: None HEENT Surgical History: Reports: Naso-Sinus Surgery, Oral Surgery, Tonsillectomy Other HEENT Surgeries/Procedures: hx of right TMJ Arthroplasty GI Surgical History: Reports: Bariatric Procedure, Cholecystectomy, Colonoscopy , EGD Female Surgical History: Reports: Hysterectomy Neurological Surgical History: Reports: Lumbar Spine, Spinal Fusion Other Neurological Surgeries/Procedures: fusion at L5-L5 Musculoskeletal Surgical History: Reports: Knee Replacement, Other (See Below) Other Musculoskeletal Surgeries/Procedures:: hx of tendon transfur right foot, plantar fasciectomy, bilateral bunionectomy, Left TKA - SUBSTANCE USE Smoking Status *Q: Never Smoker Recreational Drug Use History: No - HOME MEDS Home Medications: Home Meds Acetaminophen [Tylenol] 325 mg PO ASDIRECTED PRN 07/21/17 [History] Albuterol [Ventolin HFA] 1 - 2 puff INH Q4H PRN 07/21/17 [History] Baclofen 10 mg PO BID 07/21/17 [History] Calcium Carbonate [Tums] 500 mg PO ASDIRECTED PRN 07/21/17 [History] Cetirizine [ZyrTEC] 10 mg PO DAILY 07/21/17 [History] Cyanocobalamin/FA/Pyridoxine [Folbic Tablet] 1 tab PO DAILY 07/21/17 [History] DULoxetine HCl [Cymbalta] 120 mg PO DAILY 07/21/17 [History] Diclofenac Sodium 4 gm TOP QID 07/21/17 [History] EPINEPHrine [Epipen 2-Pavel] 1 dose IM ASDIRECTED PRN 07/21/17 [History] Flunisolide [Nasalide Nasal Harvey] 2 spray NASBOTH BID 07/21/17 [History] Gebauers [place] And Stretch 1 dose TOP ASDIRECTED PRN 07/21/17 [History] Ipratropium [place] 1 spray NASBOTH ASDIRECTED PRN 07/21/17 [History] Montelukast Sodium 10 mg PO BEDTIME 07/21/17 [History] OXcarbazepine [Oxcarbazepine] 600 mg PO BID 07/21/17 [History] Olopatadine [Pataday 0.2% Ophth Soln] 1 drop EYEBOTH ASDIRECTED PRN 07/21/17 [ History] Magnesium Oxide [Magnesium] 400 mg PO DAILY 11/23/17 [History] hydroCHLOROthiazide [Hydrochlorothiazide] 25 mg PO DAILY 11/23/17 [History] OXcarbazepine [Oxcarbazepine] 11/28/17 [History] - CURRENT (IN HOUSE) MEDS Current Meds: Current Medications Hydrocodone Bitart/Acetaminophen (Sargeant 325-5 Mg) 1 - 2 tab PO Q4H PRN PRN Reason: Pain Cefazolin Sodium/Dextrose 2 gm (/ Premix) 50 mls @ 100 mls/hr IV ONCALL PATIENCE Lactated Ringer's (Ringers, Lactated) 1,000 mls @ 100 mls/hr IV ASDIRECTED [facility] Last Admin: 11/28/17 11:05 Dose: 100 mls/hr Discontinued Medications Dexamethasone (Dexamethasone) Confirm Administered Dose 20 mg .ROUTE .STK-MED ONE Stop: 11/28/17 10:23 Fentanyl (Sublimaze) Confirm Administered Dose 250 mcg .ROUTE .STK-MED ONE Stop: 11/28/17 10:22 Lidocaine HCl (Xylocaine-Mpf 1%) Confirm Administered Dose 5 mls @ as directed .ROUTE .STK-MED ONE Stop: 11/28/17 10:23 Ketorolac Tromethamine (Toradol) Confirm Administered Dose 30 mg .ROUTE .STK- MED ONE Stop: 11/28/17 10:23 Midazolam HCl (Versed 1 Mg/Ml) Confirm Administered Dose 2 mg .ROUTE .STK-MED ONE Stop: 11/28/17 10:22 Ondansetron HCl (Zofran) Confirm Administered Dose 4 mg .ROUTE .STK-MED ONE Stop: 11/28/17 10:23 Propofol (Diprivan 20 Ml) Confirm Administered Dose 200 mg .ROUTE .STK-MED ONE Stop: 11/28/17 10:21
[2017-11-28] MEDS ORDERED: Lidocaine 1% 20 ML MDV ONE (11:45)
--- NOTE | 2017-11-28 13:27 | PCM.OPNOTE ---
- General Post-Op/Procedure Note Date of Surgery/Procedure: 11/28/17 Operative Procedure(s): L knee arthroscopy with PMM and arthroscopically aided percutaneous treatment of medial tibial plateau fracture Post-Op Diagnosis: Left knee DJD. left knee medial meniscus tear. Left medial tibial plateau fracture Anesthesia Technique: General ET Tube Primary Surgeon: Maureen George Side Laster Tack: Ciara Aparicio in mLs: 10 Condition: Good Free Text/Narrative:: tt=34 min #[id number]
[2017-11-28] MEDS ORDERED: fentaNYL 100 MCG/2 ML SDV ONE (13:40)
[2017-11-28] MEDS: fentaNYL 100 MCG/2 ML SDV IVPUSH PRN ×2 (13:41→13:48)
--- NOTE | 2017-11-28 14:13 | PCM.POSTAN ---
POST ANESTHESIA ASSESSMENT - MENTAL STATUS Mental Status: Alert, Oriented - RESPIRATORY Respiratory Status: Respiratory Rate WNL, Airway Patent, O2 Saturation Stable - CARDIOVASCULAR CV Status: Pulse Rate WNL, Blood Pressure Stable - GASTROINTESTINAL GI Status: No Symptoms - PAIN Pain Score: 8 (requested analgesia) - POST OP HYDRATION Hydration Status: Adequate & Stable
--- NOTE | 2017-11-28 15:10 | OR ---
SURGEON: Maureen George MD DATE OF PROCEDURE: 11/28/2017 PREOPERATIVE DIAGNOSES: 1. Right knee medial meniscus tear. 2. Right knee medial tibial plateau fracture. POSTOPERATIVE DIAGNOSES: 1. Right knee medial meniscus tear. 2. Right knee medial tibial plateau fracture. 3. Degenerative joint disease, right knee. PROCEDURES: 1. Right knee arthroscopy with partial medial meniscectomy. 2. Arthroscopically aided percutaneous treatment of a right medial tibial plateau fracture. ASSISTANTS: Ciara Aparicio PA-C and Rusty Sandoval MD, PGY2. ANESTHESIA: General. ESTIMATED BLOOD LOSS: 10 mL. TOURNIQUET TIME: 34 minutes. COMPLICATIONS: None. DVT PROPHYLAXIS: Not indicated. IMPLANTS USED: None. BRIEF HISTORY: Jessica is a 47-year-old female who has had complaint of progressive right knee pain. She did have an MRI, which did show extensive edema within the medial tibial plateau as well as the medial meniscus tear. I did attempt conservative treatment in the form of activity modification and limited weightbearing for 6 weeks. She continued to complain of pain along the medial aspect of the knee. Due to her lack of response to conservative treatment, I did recommend surgical intervention. The risks and goals of the procedure were discussed with the patient and were documented preoperatively. She agreed to proceed. DESCRIPTION OF PROCEDURE: The patient was properly identified and brought to the operating room. She was transferred from the OR cart and placed on the operating table in supine position. General anesthesia was administered. After adequate anesthesia was obtained, a well-padded tourniquet was applied to the right lower extremity. The right lower extremity was then prepped in standard fashion using ChloraPrep solution. It was then sterilely draped. A time-out was performed to ensure correct site and procedure. Preoperative antibiotics were given. The surgical site had been marked preoperatively. An Esmarch was used to exsanguinate the right lower extremity and the tourniquet was inflated to 250 mmHg. C-arm imaging was used for placement of the percutaneous needle. Its position was checked in both the AP and lateral views. The corresponding area of bone edema had been reviewed preoperatively on her MRI. After I felt there was appropriate positioning of the guide needle, a small incision was made and the subcutaneous tissues were spread. The guide needle was then advanced into the area of bony edema noted on MRI. The position of the needle was checked in both the AP and lateral views. Overall, I did use 3 mL of calcium phosphate cement. The side portal needle was used and the cement was injected from a 9 o'clock to 3 o'clock position. The needle was withdrawn some and the remaining cement was placed in a similar fashion. C-arm imaging did confirm the blush noted on the C - arm images consistent with fill of the cement. The needle was then kept in place as we proceeded with the arthroscopic portion of our procedure. Lateral portal arthrotomy was established. Blunt trocar and cannula were introduced into the suprapatellar space. Camera, inflow, and outflow were assembled. The suprapatellar space showed no significant synovitis. The patellofemoral joint was visualized. 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 The fat pad appeared to be causing some impingement with flexion and extension of the knee. The patella appeared to track centrally. I then extended down the lateral gutter. The start of an osteophyte was noted along the lateral femoral condyle. I then extended down the medial gutter. No loose bodies were identified. I then entered the medial compartment. A medial portal arthrotomy was established. A blunt probe was inserted. She was found to have a radial tear of the posterior horn of the medial meniscus. Using a combination of biters and shaver, this was resected back to a stable remnant. It was again probed and found to be stable. The joint surfaces including the medial femoral condyle and medial tibial plateau showed diffuse grade 3 to grade 4 chondromalacia. I then entered the notch. Both the ACL and PCL were visualized and probed and found to be intact. I then entered the lateral compartment. The meniscus was probed. She was found to have some minor degenerative fraying along the central portion of the meniscus, however, the meniscus appeared stable. She had extensive softening with grade 2-3 chondromalacia along the lateral tibial plateau. The lateral femoral condyle showed grade 1 chondromalacia changes. I then re-entered the patellofemoral joint. A portion of the fat pad was excised as it appeared to be causing some impingement. The instruments were then removed from the knee. The guide pin into the medial proximal tibia was left in place for 10 minutes. Following this, the needle was removed without difficulty. Any excess cement was cleared and a small suture was placed into the medial percutaneous needle site. The arthroscopic portals were closed also with 3-0 nylon. Lidocaine 1% was injected along the portal tracts. Xeroform gauze was placed over the wound and a bulky dressing was applied. The tourniquet was then deflated. She was awakened from her anesthetic and transferred back to the operating room cart. She was brought to recovery room in stable condition. All needle and sponge counts were correct. MIAR / INDIO /[id number]
[2017-11-28 15:12] VITALS: BP 139/89
--- NOTE | 2017-11-28 15:37 | PCM48HPAN ---
Post Anesthesia Note - EVALUATION WITHIN 48HRS OF ANESTHETIC Vital Signs in Normal Range: Yes Patient Participated in Evaluation: Yes Respiratory Function Stable: Yes Airway Patent: Yes Cardiovascular Function Stable: Yes Hydration Status Stable: Yes Pain Control Satisfactory: Yes Nausea and Vomiting Control Satisfactory: Yes Mental Status Recovered: Yes Resp Rate: 16
--- NOTE | 2017-11-29 11:32 | CR ---
EXAMINATION: Right knee HISTORY: Fracture COMPARISON: 11/22/2017 TECHNIQUE: 6 fluoroscopic views provided FINDINGS/IMPRESSION: Operative control films demonstrate instrumentation projecting over the medial t ibial plateau.
== END 2017-11-28 15:38 | disposition home or self-care (01) ==
LOC: MW.SDS 10:11
PROVIDERS: ATTEND Orthopaedic Surgery
DX: S83.241A Other tear of medial meniscus, current injury, right knee, initial encounter (principal); S82.141A Displaced bicondylar fracture of right tibia, initial encounter for closed fracture; M17.11 Unilateral primary osteoarthritis, right knee; M94.261 Chondromalacia, right knee; M25.761 Osteophyte, right knee; M71.21 Synovial cyst of popliteal space [Baker], right knee; I10 Essential (primary) hypertension; E66.9 Obesity, unspecified; E11.9 Type 2 diabetes mellitus without complications; J45.909 Unspecified asthma, uncomplicated; F41.9 Anxiety disorder, unspecified; Z79.899 Other long term (current) drug therapy; Z88.8 Allergy status to other drugs, medicaments and biological substances; Z91.041 Radiographic dye allergy status; Z91.048 Other nonmedicinal substance allergy status; W19.XXXA Unspecified fall, initial encounter
CPT/HCPCS: 29855; 29881; 76000; A9270; J1100; J1885; J2250; J2405; J2704; J3010; J7120; 01400

== ENCOUNTER 2018-04-15 12:47 | Observation (INO) | payer MEDICARE, OTHER ==
[2018-04-15] MEDS ORDERED: Aspirin 81 MG Tab.Chew PO ONE (12:59)
[2018-04-15] MEDS ORDERED: Nitroglycerin 0.4 MG Tab.SL SL PRN (12:59)
[2018-04-15 13:35] LABS: CHLORIDE,CL 101 mmol/L (98-107); SODIUM,NA 137 mmol/L (136-145)
--- NOTE | 2018-04-15 13:54 | EDM.PDOC ---
ED HPI GENERAL MEDICAL PROBLEM - General Chief Complaint: Chest Pain Stated Complaint: CHEST PAIN Time Seen by Provider: 04/15/18 12:47 Source of Information: Reports: Patient History Limitations: Reports: No Limitations - History of Present Illness INITIAL COMMENTS - FREE TEXT/NARRATIVE: History of present illness: []Patient had episode of anterior chest pain across both breasts radiating to her right jaw with dizziness and a flushed feeling that lasted approximately 20 minutes occurring about 30 minutes prior to arrival. Denies any syncope, shortness of breath. Patient's chest pain subsided spontaneously and has not recurred. Patient has had a gastric bypass in the past smoker. Review of systems: As per history of present illness and below otherwise all systems reviewed and negative. Past medical history: As per history of present illness and as reviewed below otherwise noncontributory. Surgical history: As per history of present illness and as reviewed below otherwise noncontributory. Social history: No reported history of drug or alcohol abuse. Family history: As per history of present illness and as reviewed below otherwise noncontributory. Physical exam: General: Well developed, well nourished in NAD HEENT: Atraumatic, normocephalic, pupils reactive, negative for conjunctival pallor or scleral icterus, mucous membranes moist, throat clear, neck supple, nontender, trachea midline. Lungs: Clear to auscultation, breath sounds equal bilaterally, chest nontender. Heart: S1S2, regular, negative for clicks, rubs, or JVD. Abdomen: NABS, Soft, nondistended, nontender. Negative for masses or hepatosplenomegaly. Negative for costovertebral tenderness. Pelvis: Stable nontender. Genitourinary: Deferred. Rectal: Deferred. Extremities: Atraumatic, negative for cords or calf pain. Neurovascular unremarkable. Neuro: Awake, alert, oriented. Cranial nerves II through XII unremarkable. Cerebellum unremarkable. Motor and sensory unremarkable throughout. Exam nonfocal. Skin:warm and dry Diagnostics: EKG, CBC, chemistry, troponin, chest x-ray Therapeutics: Aspirin ED Course: Unremarkable Impression: Chest pain Prescriptions: None Plan: Admit for rule out Definitive disposition and diagnosis as appropriate pending reevaluation and review of above. Mid-Sternal Chest Pain Score (Numeric/FACES): 3 - Related Data Allergies Allergy/AdvReac Type Severity Reaction Status Date / Time animal dander Allergy Shortness Verified 04/15/18 12:54 of Breath grass/trees Allergy Shortness Uncoded 03/09/18 09:57 of Breath IV Contrast Allergy Anaphylactic Uncoded 03/09/18 09:57 Shock Home Meds: Home Meds Albuterol [Ventolin HFA] 1 - 2 puff INH Q4H PRN 07/21/17 [History] Calcium Carbonate [Tums] 500 mg CHEW ASDIRECTED PRN 07/21/17 [History] Cetirizine [ZyrTEC] 10 mg PO DAILY 07/21/17 [History] Cyanocobalamin/FA/Pyridoxine [Folbic Tablet] 1 tab PO DAILY 07/21/17 [History] DULoxetine HCl [Cymbalta] 120 mg PO DAILY 07/21/17 [History] EPINEPHrine [Epipen 2-Pavel] 1 dose IM ASDIRECTED PRN 07/21/17 [History] Flunisolide [Nasalide Nasal [place]] 2 spray NASBOTH ASDIRECTED PRN 07/21/17 [ History] Gebauers [place] And Stretch 1 dose TOP ASDIRECTED PRN 07/21/17 [History] Ipratropium [place] 1 spray NASBOTH ASDIRECTED PRN 07/21/17 [History] Montelukast Sodium 10 mg PO BEDTIME 07/21/17 [History] Olopatadine [Pataday 0.2% Ophth Soln] 1 drop EYEBOTH ASDIRECTED PRN 07/21/17 [ History] Magnesium Oxide [Magnesium] 400 mg PO DAILY 11/23/17 [History] hydroCHLOROthiazide [Hydrochlorothiazide] 25 mg PO DAILY 11/23/17 [History] Losartan Potassium 50 mg PO DAILY 03/09/18 [History] Potassium Chloride 10 meq PO DAILY 03/09/18 [History] lamoTRIgine [Lamictal] 50 mg PO DAILY 03/09/18 [History] Acetaminophen/oxyCODONE [Percocet 325-5 MG] 1 - 2 tab PO Q4H PRN #60 tablet 03/21 [Rx] Apixaban [Eliquis] 2.5 mg PO BID #28 tablet 03/15/18 [Rx] Docusate Sodium [Colace] 100 mg PO BID #60 cap 03/15/18 [Rx] Polyethylene Glycol 3350 [MiraLAX] 17 gm PO DAILY #30 packet 03/15/18 [Rx] Past Medical History HEENT History: Reports: Allergic Rhinitis, Other (See Below) Other HEENT History: wears glasses/contacts Cardiovascular History: Reports: Hypertension, Other (See Below) Other Cardiovascular History: hypokalemia Respiratory History: Reports: Asthma, Other (See Below) Other Respiratory History: uses rescue inhaler about 2x per month Gastrointestinal History: Reports: Other (See Below) Other Gastrointestinal History: occasional heartburn Genitourinary History: Reports: None Musculoskeletal History: Reports: Back Pain, Chronic, Other (See Below) Other Musculoskeletal History: hx of fx clavicle Neurological History: Reports: Migraines Other Neuro History: hx of migranes before TMJ surgery Psychiatric History: Reports: Anxiety, Bipolar, Suicide Attempt Endocrine/Metabolic History: Reports: Obesity/BMI 30+ Other Endocrine/Metabolic History: type II diabetes in the past, resolved after gastric bypass Hematologic History: Reports: Anemia Immunologic History: Reports: None Oncologic (Cancer) History: Reports: None - Infectious Disease History Infectious Disease History: Reports: Chicken Pox - Past Surgical History Head Surgeries/Procedures: Reports: None HEENT Surgical History: Reports: Naso-Sinus Surgery, Tonsillectomy, Other (See Below) Other HEENT Surgeries/Procedures: hx of right TMJ Arthroplasty GI Surgical History: Reports: Bariatric Procedure, Cholecystectomy Other GI Surgeries/Procedures: gastric bypass Female Surgical History: Reports: Hysterectomy Other Neurological Surgeries/Procedures: fusion at L4-L5 Other Musculoskeletal Surgeries/Procedures:: hx of tendon transfur right foot, plantar fasciectomy, bilateral bunionectomy, Left TKA 2008 and Right TKA 2018. Social & Family History - Family History Family Medical History: Noncontributory - Tobacco Use Smoking Status *Q: Never Smoker - Caffeine Use Caffeine Use: Reports: None - Recreational Drug Use Recreational Drug Use: No ED ROS GENERAL - Review of Systems Review Of Systems: ROS reveals no pertinent complaints other than HPI. ED EXAM, GENERAL - Physical Exam Exam: See Below (See history of present illness) Course - Vital Signs Last Recorded V/S: Last Vital Signs Temp 97.5 F 04/15/18 12:50 Pulse 91 04/15/18 12:50 Resp 18 04/15/18 12:50 BP 151/96 H 04/15/18 12:50 Pulse Ox 96 04/15/18 12:50 - Orders/Labs/Meds Orders: Active Orders 24 hr Category Date Time Status EKG 12 Lead [EKG Documentation Completion] [RC] STAT Care 04/15/18 12:48 Active Chest 1V Frontal [CR] Stat Exams 04/15/18 12:48 Taken Nitroglycerin [Nitrostat] Med 04/15/18 12:59 Active 0.4 mg SL Q5M PRN Medication Orders Nitroglycerin (Nitrostat) 0.4 mg SL Q5M PRN PRN Reason: Chest Pain Labs: Laboratory Tests 04/15/18 04/15/18 Range/Units 13:00 13:00 WBC 7.25 (4.0-11.0) K/uL RBC 4.58 (4.30-5.90) M/uL Hgb 12.3 (12.0-16.0) g/dL Hct 38.5 (36.0-46.0) % MCV 84.1 (80.0-98.0) fL MCH 26.9 L (27.0-32.0) pg MCHC 31.9 (31.0-37.0) g/dL RDW Std Deviation 42.3 (28.0-62.0) fl RDW Coeff of Alberto 14 (11.0-15.0) % Plt Count 370 (150-400) K/uL MPV 9.10 (7.40-12.00) fL Neut % (Auto) 53.6 (48.0-80.0) % Lymph % (Auto) 29.0 (16.0-40.0) % [place] % (Auto) 12.3 (0.0-15.0) % Eos % (Auto) 4.7 (0.0-7.0) % Baso % (Auto) 0.4 (0.0-1.5) % Neut # (Auto) 3.9 (1.4-5.7) K/uL Lymph # (Auto) 2.1 (0.6-2.4) K/uL [place] # (Auto) 0.9 H (0.0-0.8) K/uL Eos # (Auto) 0.3 (0.0-0.7) K/uL Baso # (Auto) 0.0 (0.0-0.1) K/uL Nucleated RBC % 0.0 /100WBC Nucleated RBCs # 0 K/uL Sodium 137 (136-145) mmol/L Potassium 3.8 (3.5-5.1) mmol/L Chloride 101 (98-107) mmol/L Carbon Dioxide 29.3 (21.0-32.0) mmol/L BUN 12 (7.0-18.0) mg/dL Creatinine 0.7 (0.6-1.0) mg/dL Est Cr Clr Drug Dosing 99.15 mL/min Estimated GFR (MDRD) > 60.0 ml/min Glucose 114 H (74-106) mg/dL Calcium 9.1 (8.5-10.1) mg/dL Total Bilirubin 0.4 (0.2-1.0) mg/dL AST 17 (15-37) IU/L ALT 26 (14-63) IU/L Alkaline Phosphatase 90 (46-116) U/L Troponin I < 0.050 (0.000-0.056) ng/mL Total Protein 7.2 (6.4-8.2) g/dL Albumin 3.4 (3.4-5.0) g/dL Globulin 3.8 (2.6-4.0) g/dL Albumin/Globulin Ratio 0.9 (0.9-1.6) Meds: Medications Generic Name Dose Route Start Last Admin Trade Name Freq PRN Reason Stop Dose Admin Nitroglycerin 0.4 mg 04/15/18 12:59 Nitrostat SL Q5M PRN Chest Pain Discontinued Medications Generic Name Dose Route Start Last Admin Trade Name Freq PRN Reason Stop Dose Admin Aspirin 324 mg 04/15/18 12:59 04/15/18 13:07 Aspirin PO 04/15/18 13:00 324 mg ONETIME ONE Administration Departure - Departure Time of Disposition: 13:53 Disposition: Refer to Observation Condition: Good Clinical Impression: Chest pain Qualifiers: Chest pain type: unspecified Qualified Code(s): R07.9 - Chest pain, unspecified - My Orders Last 24 Hours: My Active Orders 04/15/18 12:59 Nitroglycerin [Nitrostat] 0.4 mg SL Q5M PRN - Assessment/Plan Last 24 Hours: My Active Orders 04/15/18 12:59 Nitroglycerin [Nitrostat] 0.4 mg SL Q5M PRN
[2018-04-15] MEDS ORDERED: Calcium Carbonate 500 MG Tab.Chew CHEW PRN (18:07)
[2018-04-15] MEDS ORDERED: Albuterol 8 GM Inhaler INH PRN (18:07)
[2018-04-15] MEDS ORDERED: OLOPATADINE EYEBOTH PRN (18:07)
--- NOTE | 2018-04-15 18:20 | PCM.HP ---
H&P History of Present Illness - General Date of Service: 04/15/18 Admit Problem/Dx: Admission Diagnosis/Problem Admission Diagnosis/Problem Chest pain - History of Present Illness Initial Comments - Free Text/Narative: 47 yo female with pmh of HTN, DM type 2 that has resolve since gastric bipass who presents with 40 minute history of chest pain. The pain was sharp across her chest and radiated to the back and jaw. She had associated symptoms of lightheadedness and feeling flush. She denies any shortness of breath or fevers. Mid-Sternal Chest Pain Score (Numeric/FACES): 3 - Related Data Allergies/Adverse Reactions: Allergies Allergy/AdvReac Type Severity Reaction Status Date / Time animal dander Allergy Shortness Verified 04/15/18 12:54 of Breath grass/trees Allergy Shortness Uncoded 03/09/18 09:57 of Breath IV Contrast Allergy Anaphylactic Uncoded 03/09/18 09:57 Shock Home Medications: Home Meds Albuterol [Ventolin HFA] 1 - 2 puff INH Q4H PRN 07/21/17 [History] Calcium Carbonate [Tums] 500 mg CHEW ASDIRECTED PRN 07/21/17 [History] Cetirizine [ZyrTEC] 10 mg PO DAILY 07/21/17 [History] Cyanocobalamin/FA/Pyridoxine [Folbic Tablet] 1 tab PO DAILY 07/21/17 [History] DULoxetine HCl [Cymbalta] 120 mg PO DAILY 07/21/17 [History] EPINEPHrine [Epipen 2-Pavel] 1 dose IM ASDIRECTED PRN 07/21/17 [History] Flunisolide [Nasalide Nasal [place]] 2 spray NASBOTH ASDIRECTED PRN 07/21/17 [ History] Gebauers [place] And Stretch 1 dose TOP ASDIRECTED PRN 07/21/17 [History] Ipratropium [place] 1 spray NASBOTH ASDIRECTED PRN 07/21/17 [History] Montelukast Sodium 10 mg PO BEDTIME 07/21/17 [History] Olopatadine [Pataday 0.2% Ophth Soln] 1 drop EYEBOTH ASDIRECTED PRN 07/21/17 [ History] Magnesium Oxide [Magnesium] 400 mg PO DAILY 11/23/17 [History] hydroCHLOROthiazide [Hydrochlorothiazide] 25 mg PO DAILY 11/23/17 [History] Losartan Potassium 50 mg PO DAILY 03/09/18 [History] Potassium Chloride 10 meq PO DAILY 03/09/18 [History] lamoTRIgine [Lamictal] 100 mg PO DAILY 03/09/18 [History] Docusate Sodium [Colace] 100 mg PO BID #60 cap 03/15/18 [Rx] Polyethylene Glycol 3350 [MiraLAX] 17 gm PO DAILY #30 packet 03/15/18 [Rx] Cyanocobalamin/FA/Pyridoxine [Niva-Fol Tablet] 1 each PO BID 04/15/18 [History] Mupirocin Oint [Bactroban Oint] 1 gm TP BID 04/15/18 [History] lamoTRIgine [Lamictal] 100 mg PO DAILY 04/15/18 [History] oxyCODONE HCl/Acetaminophen [Percocet 10-325 mg Tablet] 1 - 2 each PO Q4HR PRN 04/15/18 [History] Past Medical History HEENT History: Reports: Allergic Rhinitis, Other (See Below) Other HEENT History: wears glasses/contacts Cardiovascular History: Reports: Hypertension, Other (See Below) Other Cardiovascular History: hypokalemia Respiratory History: Reports: Asthma, Other (See Below) Other Respiratory History: uses rescue inhaler about 2x per month Gastrointestinal History: Reports: Other (See Below) Other Gastrointestinal History: occasional heartburn Genitourinary History: Reports: None [employer] History: Reports: Other (See Below) Other OB/BYN History: hysterectomy Musculoskeletal History: Reports: Back Pain, Chronic, Other (See Below) Other Musculoskeletal History: hx of fx clavicle Neurological History: Reports: Migraines Other Neuro History: hx of migranes before TMJ surgery Psychiatric History: Reports: Anxiety, Bipolar, Suicide Attempt Endocrine/Metabolic History: Reports: Obesity/BMI 30+ Other Endocrine/Metabolic History: type II diabetes in the past, resolved after gastric bypass Hematologic History: Reports: Anemia Immunologic History: Reports: None Oncologic (Cancer) History: Reports: None - Infectious Disease History Infectious Disease History: Reports: Chicken Pox - Past Surgical History Head Surgeries/Procedures: Reports: None HEENT Surgical History: Reports: Naso-Sinus Surgery, Tonsillectomy, Other (See Below) Other HEENT Surgeries/Procedures: hx of right TMJ Arthroplasty GI Surgical History: Reports: Bariatric Procedure, Cholecystectomy Other GI Surgeries/Procedures: gastric bypass Female Surgical History: Reports: Hysterectomy Other Neurological Surgeries/Procedures: fusion at L4-L5 Other Musculoskeletal Surgeries/Procedures:: hx of tendon transfur right foot, plantar fasciectomy, bilateral bunionectomy, Left TKA 2009 and Right TKA 2018. Social & Family History - Family History Family Medical History: Noncontributory - Tobacco Use Smoking Status *Q: Never Smoker Second Hand Smoke Exposure: No - Caffeine Use Caffeine Use: Reports: Coffee - Recreational Drug Use Recreational Drug Use: No H&P Review of Systems - Review of Systems: Review Of Systems: ROS reveals no pertinent complaints other than HPI. Exam - Exam Exam: See Below - Vital Signs Vital Signs: Last Vital Signs Temp 36.0 C 04/15/18 15:05 Pulse 85 04/15/18 15:05 Resp 18 04/15/18 15:05 BP 129/84 04/15/18 15:05 Pulse Ox 96 04/15/18 15:05 Weight: 104.78 kg - Exam General: Alert, Oriented HEENT: Posterior Pharynx Clear Lungs: Clear to Auscultation, Normal Respiratory Effort Cardiovascular: Regular Rate, Regular Rhythm GI/Abdominal Exam: Soft, Non-Tender Extremities: No Pedal Edema Skin: Warm, Dry, Intact - Patient Data Lab Results Last 24 hrs: Laboratory Results - last 24 hr 04/15/18 04/15/18 Range/Units 13:00 13:00 WBC 7.25 (4.0-11.0) K/uL RBC 4.58 (4.30-5.90) M/uL Hgb 12.3 (12.0-16.0) g/dL Hct 38.5 (36.0-46.0) % MCV 84.1 (80.0-98.0) fL MCH 26.9 L (27.0-32.0) pg MCHC 31.9 (31.0-37.0) g/dL RDW Std Deviation 42.3 (28.0-62.0) fl RDW Coeff of Alberto 14 (11.0-15.0) % Plt Count 370 (150-400) K/uL MPV 9.10 (7.40-12.00) fL Neut % (Auto) 53.6 (48.0-80.0) % Lymph % (Auto) 29.0 (16.0-40.0) % [place] % (Auto) 12.3 (0.0-15.0) % Eos % (Auto) 4.7 (0.0-7.0) % Baso % (Auto) 0.4 (0.0-1.5) % Neut # (Auto) 3.9 (1.4-5.7) K/uL Lymph # (Auto) 2.1 (0.6-2.4) K/uL [place] # (Auto) 0.9 H (0.0-0.8) K/uL Eos # (Auto) 0.3 (0.0-0.7) K/uL Baso # (Auto) 0.0 (0.0-0.1) K/uL Nucleated RBC % 0.0 /100WBC Nucleated RBCs # 0 K/uL Sodium 137 (136-145) mmol/L Potassium 3.8 (3.5-5.1) mmol/L Chloride 101 (98-107) mmol/L Carbon Dioxide 29.3 (21.0-32.0) mmol/L BUN 12 (7.0-18.0) mg/dL Creatinine 0.7 (0.6-1.0) mg/dL Est Cr Clr Drug Dosing 99.15 mL/min Estimated GFR (MDRD) > 60.0 ml/min Glucose 114 H (74-106) mg/dL Calcium 9.1 (8.5-10.1) mg/dL Total Bilirubin 0.4 (0.2-1.0) mg/dL AST 17 (15-37) IU/L ALT 26 (14-63) IU/L Alkaline Phosphatase 90 (46-116) U/L Troponin I < 0.050 (0.000-0.056) ng/mL Total Protein 7.2 (6.4-8.2) g/dL Albumin 3.4 (3.4-5.0) g/dL Globulin 3.8 (2.6-4.0) g/dL Albumin/Globulin Ratio 0.9 (0.9-1.6) Result Diagrams: 04/15/18 13:00 04/15/18 13:00 Problem List Initiated/Reviewed/Updated: Yes Orders Last 24hrs: Active Orders 24 hr Category Date Time Status Patient Status [ADT] Stat ADT 04/15/18 13:54 Active EKG 12 Lead [EKG Documentation Completion] [RC] STAT Care 04/15/18 12:48 Active Regular Diet [DIET] Diet 04/15/18 Dinner Active Chest 1V Frontal [CR] Stat Exams 04/15/18 12:48 Taken TROPONIN I [CHEM] Q6H Lab 04/15/18 19:00 Ordered TROPONIN I [CHEM] Q6H Lab 04/16/18 01:00 Ordered Acetaminophen/oxyCODONE [Percocet 325-10 MG] Med 04/15/18 18:07 Active 1 tab PO Q4HR PRN Albuterol [Ventolin HFA] Med 04/15/18 18:07 Active 0 gm INH Q4H PRN Calcium Carbonate [Tums] Med 04/15/18 18:07 Active 500 mg CHEW ASDIRECTED PRN Cetirizine [ZyrTEC] Med 04/16/18 09:00 Active 10 mg PO DAILY DULoxetine [Cymbalta] Med 04/16/18 09:00 Active 120 mg PO DAILY Losartan [Cozaar] Med 04/16/18 09:00 Ordered 50 mg PO DAILY Montelukast [Singulair] Med 04/15/18 21:00 Ordered 10 mg PO BEDTIME Nitroglycerin [Nitrostat] Med 04/15/18 12:59 Active 0.4 mg SL Q5M PRN Olopatadine [Pataday 0.2% Ophth Soln] Med 04/15/18 18:07 Ordered 1 drop EYEBOTH ASDIRECTED PRN hydroCHLOROthiazide Med 04/16/18 09:00 Active 25 mg PO DAILY lamoTRIgine Med 04/16/18 09:00 Active 100 mg PO DAILY lamoTRIgine Med 04/16/18 09:00 Pending 100 mg PO DAILY Medication Orders Albuterol (Ventolin Hfa) 0 gm INH Q4H PRN PRN Reason: Wheezing Calcium Carbonate/Glycine (Tums) 500 mg CHEW ASDIRECTED PRN PRN Reason: Heartburn Cetirizine HCl (Zyrtec) 10 mg PO DAILY PATIENCE Duloxetine HCl (Cymbalta) 120 mg PO DAILY PATIENCE Hydrochlorothiazide (Hydrochlorothiazide) 25 mg PO DAILY PATIENCE Lamotrigine (Lamotrigine) 100 mg PO DAILY PATIENCE Lamotrigine (Lamotrigine) 100 mg PO DAILY PATIENCE Losartan Potassium (Cozaar) 50 mg PO DAILY PATIENCE Montelukast Sodium (Singulair) 10 mg PO BEDTIME PATIENCE Nitroglycerin (Nitrostat) 0.4 mg SL Q5M PRN PRN Reason: Chest Pain Non-Formulary Medication (Olopatadine [Pataday 0.2% Ophth Soln]) 1 drop EYEBOTH ASDIRECTED PRN PRN Reason: Dry Eyes Oxycodone/Acetaminophen (Percocet 325-10 Mg) 1 tab PO Q4HR PRN PRN Reason: Pain Assessment/Plan Comment:: 47 yo female admitted for chest pain. She ruled out for acute coronary syndrome with serial negative cardiac enzymes. Patient was discharged home to have follow up with Dr. Chong. A referral for outpatient cardiac stress testing was made.
[2018-04-15] MEDS: Acetaminophen/oxyCODONE 325-10 MG Tab PO PRN (20:53)
[2018-04-15] MEDS ORDERED: Montelukast 10 MG Tab PO SCH (21:00)
[2018-04-15] MEDS ORDERED: Polyethylene Glycol 3350 Powder 17 GM Packet PO PRN (21:39)
[2018-04-16] MEDS: Acetaminophen/oxyCODONE 325-10 MG Tab PO PRN ×2 (00:54→07:32)
[2018-04-16 08:23] VITALS: BP 129/86
[2018-04-16] MEDS ORDERED: Polyethylene Glycol 3350 Powder 17 GM Packet PO SCH (09:00)
[2018-04-16] MEDS ORDERED: Losartan 50 MG Tab PO SCH (09:00)
[2018-04-16] MEDS ORDERED: Cetirizine 10 MG Tab PO SCH (09:00)
[2018-04-16] MEDS ORDERED: lamoTRIgine 100 MG Tab PO SCH (09:00)
[2018-04-16] MEDS ORDERED: Hydrochlorothiazide 25 MG Tab PO SCH (09:00)
[2018-04-16] MEDS ORDERED: DULoxetine 60 MG Cap PO SCH (09:00)
[2018-04-16] MEDS ORDERED: lamoTRIgine 25 MG Tab PO SCH (09:00)
--- NOTE | 2018-04-17 17:36 | CR ---
EXAM DATE: 04/15/18 PATIENT'S AGE: 47 Patient: CHARITO ZENDEJAS Facility: [place], [place] Site . Site : 1970 Study: XRay Chest [id number]/12/2019 1:22:08 PM Ordering Physician: Doctor Simms Final Report: Indication: Pain. Shortness of breath. Technique: A single AP portable view of the chest was obtained. Comparison: None Findings: The heart is normal in size. The lungs are clear. No infiltrate, pleural effusion, or pneumothorax is identified. Impression: No acute cardiopulmonary process. Dictated by , @ (Electronic Signature) Report Signed by Proxy. DRAGAN
== END 2018-04-16 10:15 | disposition home or self-care (01) ==
LOC: MW.ED 12:47 → MW.MS 13:54
PROVIDERS: ADMIT Internal Medicine; ATTEND Internal Medicine
DX: R07.2 Precordial pain (principal); I10 Essential (primary) hypertension; J45.909 Unspecified asthma, uncomplicated; E66.9 Obesity, unspecified; F41.9 Anxiety disorder, unspecified; Z87.891 Personal history of nicotine dependence; Z79.899 Other long term (current) drug therapy; Z98.84 Bariatric surgery status; Z91.041 Radiographic dye allergy status; Z91.048 Other nonmedicinal substance allergy status
CPT/HCPCS: 36415; 71045; 80053; 84484; 85025; 93005; 99285; A9270; G0378; 99284

== ENCOUNTER 2018-06-28 08:44 | Day surgery (SDC) | payer MEDICARE, OTHER ==
[~2018-06-28 08:44] MED LIST changes: +Bupivacaine 0.25%/EPINEPHrine 1:200,000 10 ML SDV INJECT ONE; +Bupivacaine 25%/EPINEPHrine/PF 30 ML ONE; +ceFAZolin 2 GM in Premix Bag 1 BAG IV ONE; -ceFAZolin 2 GM in Premix Bag 1 BAG IV SCH
--- NOTE | 2018-06-28 10:11 | PCM.PREANE ---
Preanesthetic Assessment - Anesthesia/Transfusion/Family Hx Anesthesia History: Prior Anesthesia Without Reaction Other Type of Anesthesia Reaction Comment: no N&V recently Family History of Anesthesia Reaction: No Transfusion History: No Prior Transfusion(s) Intubation History: Unknown - Review of Systems General: No Symptoms Pulmonary: No Symptoms Cardiovascular: No Symptoms Gastrointestinal: No Symptoms Neurological: No Symptoms Other: Reports: None - Physical Assessment O2 Sat by Pulse Oximetry: 97 Respiratory Rate: 18 Vital Signs: Last Vital Signs Temp 36.4 C 06/28/18 09:25 Pulse 77 06/28/18 09:25 Resp 18 06/28/18 09:25 BP 102/66 06/28/18 09:25 Pulse Ox 97 06/28/18 09:25 Height: 1.73 m Weight: 103.419 kg ASA Class: 3 Mental Status: Alert & Oriented x3 Airway Class: Mallampati = 2 Dentition: Reports: Normal Dentition Thyro-Mental Finger Breadths: 3 Mouth Opening Finger Breadths: 2 (small mouth opening) ROM/Head Extension: Full Lungs: Clear to Auscultation, Normal Respiratory Effort Cardiovascular: Regular Rate, Regular Rhythm - Allergies Allergies/Adverse Reactions: Allergies Allergy/AdvReac Type Severity Reaction Status Date / Time animal dander Allergy Shortness Verified 06/23/18 17:01 of Breath grass/trees Allergy Shortness Uncoded 03/09/18 09:57 of Breath IV Contrast Allergy Anaphylactic Uncoded 03/09/18 09:57 Shock - Blood Blood Available: No - Anesthesia Plan Pre-Op Medication Ordered: None - Acknowledgements Anesthesia Type Planned: General Anesthesia Pt an Appropriate Candidate for the Planned Anesthesia: Yes Alternatives and Risks of Anesthesia Discussed w Pt/Guardian: Yes Pt/Guardian Understands and Agrees with Anesthesia Plan: Yes PreAnesthesia Questionnaire HEENT History: Reports: Allergic Rhinitis, Other (See Below) Other HEENT History: wears glasses/contacts Cardiovascular History: Reports: Hypertension, Other (See Below) Other Cardiovascular History: hypokalemia, h/o high cholesterol before gastric by pass Respiratory History: Reports: Asthma, Other (See Below) Other Respiratory History: uses rescue inhaler about 2x per month, h/o sleep apnea before gastric by pass Gastrointestinal History: Reports: Other (See Below) Other Gastrointestinal History: occasional heartburn Genitourinary History: Reports: None [employer] History: Reports: Other (See Below) Other OB/BYN History: hysterectomy Musculoskeletal History: Reports: Back Pain, Chronic, Other (See Below) Other Musculoskeletal History: hx of fx clavicle Neurological History: Reports: Migraines Other Neuro History: hx of migranes before TMJ surgery Psychiatric History: Reports: Anxiety, Bipolar, Suicide Attempt Endocrine/Metabolic History: Reports: Obesity/BMI 30+ Other Endocrine/Metabolic History: type II diabetes in the past, resolved after gastric bypass Hematologic History: Reports: Anemia Immunologic History: Reports: None Oncologic (Cancer) History: Reports: None - Infectious Disease History Infectious Disease History: Reports: Chicken Pox - Past Surgical History HEENT Surgical History: Reports: Naso-Sinus Surgery, Tonsillectomy Other HEENT Surgeries/Procedures: hx of right TMJ Arthroplasty GI Surgical History: Reports: Bariatric Procedure, Cholecystectomy, Colonoscopy Female Surgical History: Reports: Hysterectomy Neurological Surgical History: Reports: Lumbar Spine, Spinal Fusion Musculoskeletal Surgical History: Reports: Knee Replacement, Other (See Below) Other Musculoskeletal Surgeries/Procedures:: hx of tendon transfur right foot, plantar fasciectomy, bilateral bunionectomy, Left TKA 2008 and Right TKA 2017. - SUBSTANCE USE Smoking Status *Q: Never Smoker Recreational Drug Use History: No - HOME MEDS Home Medications: Home Meds Albuterol [Ventolin HFA] 1 - 2 puff INH Q4H PRN 07/21/17 [History] Calcium Carbonate [Tums] 500 mg CHEW ASDIRECTED PRN 07/21/17 [History] Cetirizine [ZyrTEC] 10 mg PO DAILY 07/21/17 [History] EPINEPHrine [Epipen 2-Pavel] 1 dose IM ASDIRECTED PRN 07/21/17 [History] Gebauers [place] And Stretch 1 dose TOP ASDIRECTED PRN 07/21/17 [History] Ipratropium [place] 1 spray NASBOTH ASDIRECTED PRN 07/21/17 [History] Montelukast Sodium 10 mg PO BEDTIME 07/21/17 [History] Olopatadine [Pataday 0.2% Ophth Soln] 1 drop EYEBOTH ASDIRECTED PRN 07/21/17 [ History] hydroCHLOROthiazide [Hydrochlorothiazide] 25 mg PO DAILY 11/23/17 [History] Losartan Potassium 50 mg PO QAM 03/09/18 [History] Potassium Chloride 10 meq PO DAILY 03/09/18 [History] Biotin 10 mg PO DAILY 06/23/18 [History] DULoxetine [Cymbalta] 120 mg PO DAILY 06/23/18 [History] Diclofenac Sodium [Voltaren 1% Gel] 4 gm TOP QID PRN 06/23/18 [History] Fluticasone/Salmeterol [Advair 250-50 Diskus] 1 puff INH BID 06/23/18 [History] Olopatadine HCl [Pataday] 1 drop EYEBOTH DAILY 06/23/18 [History] Ziprasidone HCl [Geodon] 20 mg PO DAILY 06/23/18 [History] - CURRENT (IN HOUSE) MEDS Current Meds: Current Medications Hydrocodone Bitart/Acetaminophen ([place] 325-5 Mg) 1 tab PO Q4H PRN PRN Reason: Pain Lactated Ringer's (Ringers, Lactated) 1,000 mls @ 125 mls/hr IV ASDIRECTED PATIENCE Last Admin: 06/28/18 09:35 Dose: 125 mls/hr Discontinued Medications Bupivacaine HCl/Epinephrine Bitart ([place] 0.25%/Epinephrine 1:200,000) 10 ml INJECT ONETIME ONE Stop: 06/28/18 08:01 Cefazolin Sodium/Dextrose 2 gm (/ Premix) 50 mls @ 100 mls/hr IV ONETIME ONE Stop: 06/28/18 08:29 Bupivacaine HCl/Epinephrine Bitart (Sensorc Mpf 0.25%-Epi [id number]) Confirm Administered Dose 30 mls @ as directed .ROUTE .STK-MED ONE Stop: 06/28/18 07:41
[2018-06-28] MEDS ORDERED: Propofol 200 MG/20 ML SDV ONE (10:39)
[2018-06-28] MEDS ORDERED: Midazolam 1 MG/ML 2 ML SDV ONE (10:39)
[2018-06-28] MEDS ORDERED: fentaNYL 100 MCG/2 ML SDV ONE (10:39)
[2018-06-28] MEDS ORDERED: ceFAZolin/Dextrose,Iso-Osmotic 2 GM/50 ML Duplex Bag IV ONE (10:43)
[2018-06-28] MEDS ORDERED: Ondansetron 4 MG/2 ML SDV ONE (11:20)
[2018-06-28] MEDS ORDERED: Dexamethasone 4 MG/ML 5 ML MDV ONE (11:20)
[2018-06-28] MEDS ORDERED: ePHEDrine 50 MG/ML SDV ONE (11:40)
[2018-06-28] MEDS ORDERED: Ketorolac 30 MG/ML SDV ONE (12:14)
[2018-06-28] MEDS ORDERED: fentaNYL 100 MCG/2 ML SDV IVPUSH PRN (12:17)
[2018-06-28] MEDS ORDERED: Octyl 2-Cyanoacrylate 1 Tube ONE (12:20)
[2018-06-28 15:06] VITALS: BP 107/63
--- NOTE | 2018-06-28 15:52 | PCM.OPNOTE ---
- General Post-Op/Procedure Note Date of Surgery/Procedure: 06/28/18 Operative Procedure(s): left carpometacarpal arthroplasty with ligament reconstruction and tendon interpositon, promixal metacarpal resection Pre Op Diagnosis: left cmc arthritis Post-Op Diagnosis: Same Anesthesia Technique: General LMA, Local, MAC Primary Surgeon: Aileen Arredondo Property Management Bookkeeper: Lyla Lemon Complications: None Condition: Good Free Text/Narrative:: Intake & Output 06/27/18 06/28/18 06/28/18 23:59 07:59 15:59 Intake Total 1400 Balance 1400
--- NOTE | 2018-06-28 22:29 | OR ---
SURGEON: KANNAN RUBALCAVA MD DATE OF PROCEDURE: 06/28/2018 PREOPERATIVE DIAGNOSIS: Left carpometacarpal severe arthritis. POSTOPERATIVE DIAGNOSIS: Left carpometacarpal severe arthritis. PROCEDURE: 1. Left carpometacarpal arthroplasty with ligament reconstruction and tendon interposition. 2. Proximal metacarpal resection. OFFICE AUDITOR: ALECIA Talavera ANESTHESIA: General LMA with local. INDICATIONS: Ms. Andrew is a 48-year-old female, seen today in evaluation for her left CMC arthritis. This is severe, and she has continued with injections but unfortunately has moved on to the point where injections do not help as long as she would like. She would like definitive management, and risks and benefits of surgery were discussed. Risks were including but not limited to bleeding, infection, damage to underlying or overlying structures, possible need for future interventions, or possible scarring. We did discuss with her pain team, and she has been off her naltrexone for 2 weeks. She will resume it only after discontinuing [place] for at least 5 days as discussed. She understands and has been very compliant. PROCEDURE IN DETAIL: After informed consent was obtained and placed on the chart, the patient was brought to the operating theater and laid in supine position. After adequate general anesthesia was obtained, the area was prepped and draped, and a time-out was completed to confirm side and site. Attention was then paid to exsanguination of the arm and insufflation of the tourniquet to 200 mmHg. 0.25% Marcaine with epinephrine had been injected into the area for pain control and meticulous hemostasis, and a curvilinear incision was made over the dorsal lateral aspect of the left thumb metacarpocarpal joint. Once adequately dissected through the skin and subcutaneous tissues carefully protecting all branches of the superficial radial nerve, the joint itself was located, and Bovie electrocautery was used to enter the joint and dissect circumferentially around the trapezium itself. Fluoroscopy was used to confirm that the trapezium itself was being dissected, and once confirmed, the trapezium was removed. Once adequately removed, fluoroscopic examination demonstrated adequate removal, and attention was then paid to resection of the proximal metacarpal as well. This was involved in the arthritic process and was still rubbing on the trapezoid. This was eliminated using a flat 5 mm bone saw. Once adequately removed, attention was then paid to harvest of the flexor carpi radialis tendon through a separate incision in the volar forearm. Attention was paid to the separate incision on the volar forearm, and dissection was carried through the skin and subcutaneous tissues until the flexor carpi radialis musculotendinous junction was located. The tendon itself was isolated, elevated, and confirmed to be flexor carpi radialis and then transected. Once adequately removed from the musculotendinous junction, the tendon itself was then passed into the distal thumb area. A 3.5 mm bur was then used to dissect a hole through the lateral aspect of the metacarpal base, and the tendon was passed through this easily and tied back upon itself. This was used for suspension of the thumb. Once this was completed with 4-0 FiberWire, attention was then paid to making an anchovy out of the tendon itself. This was wrapped up, sutured with a FiberWire, and then sutured upon itself at the base of the thumb in order to provide a spacer between the remaining carpus and the base of the metacarpal. Once this was complete and it was secured in place, the area was copiously irrigated, and hemostasis was meticulously obtained. The tourniquet was desufflated, and the area was irrigated, and once hemostasis was obtained, attention was then paid to closure of the joint capsule using a 4-0 FiberWire and 4-0 Monocryl and then closure of the skin using a 4-0 Monocryl in a running subcuticular fashion. The separate incision was also closed with 4-0 Monocryl in a running subcuticular fashion. She has previously had allergies to tape, and thus Dermabond was used to close the wounds. The wound was dressed with fluffs, Kerlix, gauze, and a short-arm thumb spica splint. This was made of plaster. She tolerated this well, and all counts and needles were correct at the end of the case. FOLLOWUP INSTRUCTIONS: The patient will see us in clinic in approximately 2 weeks; sooner if any problems, questions, or concerns. She was given a prescription for pain control. EFRAÍN / INDIO /[id number]
== END 2018-06-28 14:30 | disposition home or self-care (01) ==
LOC: MW.SDS 08:44
PROVIDERS: ATTEND Plastic Surgery
DX: M18.12 Unilateral primary osteoarthritis of first carpometacarpal joint, left hand (principal); I10 Essential (primary) hypertension; E87.6 Hypokalemia; E66.9 Obesity, unspecified; Z68.34 Body mass index [BMI] 34.0-34.9, adult; E11.9 Type 2 diabetes mellitus without complications; F41.9 Anxiety disorder, unspecified; F31.9 Bipolar disorder, unspecified; Z79.899 Other long term (current) drug therapy; Z91.041 Radiographic dye allergy status; Z91.048 Other nonmedicinal substance allergy status
CPT/HCPCS: 25447; 26230; A9270; J0690; J1100; J1885; J2001; J2250; J2405; J2704; J3010; J7120